=== PATIENT | male | born 1955 | race Two or more races ===

== ENCOUNTER 2017-09-06 23:33 | Inpatient (IN) | payer OTHER ==
[~2017-09-06] VITALS: Ht 172.7 cm; Wt 72.6 kg
[2017-09-06] MEDS ORDERED: GABAPENTIN600 MG (23:42)
[2017-09-06] MEDS ORDERED: ZOLPIDEM TARTRA10 MG (23:45)
[2017-09-06] MEDS ORDERED: ALPRAZOLAM2 MG (23:45)
[2017-09-06] MEDS ORDERED: HUMALOG MI100 UNIT/2 (23:46)
[2017-09-06] MEDS ORDERED: TRAMADOL HCL50 MG (23:48)
[2017-09-06] MEDS ORDERED: RAMIPRIL5 MG (23:48)
[2017-09-06] MEDS ORDERED: SERTRALINE HCL50 MG (23:48)
[2017-12-07] MEDS ORDERED: THIAMINE H100 MG/1 M IV (15:28)
[2017-12-07] MEDS ORDERED: AMLODIPINE BESYL5 MG PO (15:28)
[2017-12-07] MEDS ORDERED: PRE PROTEIN 2030 ML PO (15:28)
[2017-12-07] MEDS ORDERED: NeurRONTin 250MG/5ML PO (15:28)
[2017-12-07] MEDS ORDERED: LEVOTHYROXINE25 MCG PO (15:28)
[2017-12-07] MEDS ORDERED: LOSARTAN POTASS50 MG PO (15:28)
[2017-12-07] MEDS ORDERED: TOPROL XL100 M1 PO (15:28)
[2017-12-07] MEDS ORDERED: SERTRALINE HCL50 MG PO (15:28)
[2017-12-07] MEDS ORDERED: SUCRALFATE1 GM/10 ML PO (15:28)
[2017-12-07] MEDS ORDERED: PANTOPRAZOLE SO40 MG PO (15:28)
[2017-12-07] MEDS ORDERED: BACLOFEN10 MG PO (15:28)
[2017-12-07] MEDS ORDERED: FOLIC ACID1 MG PO (15:28)
[2017-12-07] MEDS ORDERED: HYDRALAZINE HCL25 MG PO (15:28)
[2017-12-07] MEDS ORDERED: Neurin-Sl Tablet Sl SL (15:28)
[2017-12-10] MEDS ORDERED: PLAVIX75 MG PO (10:08)
== END 2017-12-10 12:29 | disposition home or self-care (01) | DRG 4 ==
LOC: ER 23:33 → MEDJ 09-07 00:38 → ICU 09-07 00:38 → ICU-2 09-07 00:38 → ICU 09-10 08:36 → SURH 10-21 19:54 → MEDI 10-21 19:54 → SURH 10-21 19:54 → ICU 11-25 14:21
PROVIDERS: Otolaryngology
PROC: 5A1955Z Respiratory Ventilation, Greater than 96 Consecutive Hours (ICD-10-PCS; 2017-09-07)
PROC: 0BH17EZ Insertion of Endotracheal Airway into Trachea, Via Natural or Artificial Opening (ICD-10-PCS; 2017-09-07)
PROC: 4A033R1 Measurement of Arterial Saturation, Peripheral, Percutaneous Approach (ICD-10-PCS; 2017-09-07)
PROC: BW28ZZZ Computerized Tomography (CT Scan) of Head (ICD-10-PCS; 2017-09-08)
PROC: B246ZZZ Ultrasonography of Right and Left Heart (ICD-10-PCS; 2017-09-09)
PROC: 3E0F7GC Introduction of Other Therapeutic Substance into Respiratory Tract, Via Natural or Artificial Opening (ICD-10-PCS; 2017-09-15)
PROC: B020ZZZ Computerized Tomography (CT Scan) of Brain (ICD-10-PCS; 2017-09-18)
PROC: BR20ZZZ Computerized Tomography (CT Scan) of Cervical Spine (ICD-10-PCS; 2017-09-18)
PROC: 05H433Z Insertion of Infusion Device into Left Innominate Vein, Percutaneous Approach (ICD-10-PCS; 2017-09-18)
PROC: 4A00X4Z Measurement of Central Nervous Electrical Activity, External Approach (ICD-10-PCS; 2017-09-24)
PROC: 30233K1 Transfusion of Nonautologous Frozen Plasma into Peripheral Vein, Percutaneous Approach (ICD-10-PCS; 2017-09-27)
PROC: 0B110F4 Bypass Trachea to Cutaneous with Tracheostomy Device, Open Approach (ICD-10-PCS; principal; 2017-09-29 17:00)
PROC: B030ZZZ Magnetic Resonance Imaging (MRI) of Brain (ICD-10-PCS; 2017-10-02)
PROC: 0DH63UZ Insertion of Feeding Device into Stomach, Percutaneous Approach (ICD-10-PCS; 2017-10-07)
PROC: BB24ZZZ Computerized Tomography (CT Scan) of Bilateral Lungs (ICD-10-PCS; 2017-10-09)
PROC: 4A12X4Z Monitoring of Cardiac Electrical Activity, External Approach (ICD-10-PCS; 2017-10-21)
PROC: 0B21XFZ Change Tracheostomy Device in Trachea, External Approach (ICD-10-PCS; 2017-10-27)
PROC: 30233N1 Transfusion of Nonautologous Red Blood Cells into Peripheral Vein, Percutaneous Approach (ICD-10-PCS; 2017-10-29)
PROC: 0B21XFZ Change Tracheostomy Device in Trachea, External Approach (ICD-10-PCS; 2017-11-04)
PROC: B54PZZZ Ultrasonography of Bilateral Upper Extremity Veins (ICD-10-PCS; 2017-11-11)
PROC: BW40ZZZ Ultrasonography of Abdomen (ICD-10-PCS; 2017-11-12)
DX: E10.649 Type 1 diabetes mellitus with hypoglycemia without coma (principal); G93.41 Metabolic encephalopathy; J96.01 Acute respiratory failure with hypoxia; E87.0 Hyperosmolality and hypernatremia; B37.0 Candidal stomatitis; B37.49 Other urogenital candidiasis; J90 Pleural effusion, not elsewhere classified; E10.10 Type 1 diabetes mellitus with ketoacidosis without coma; I10 Essential (primary) hypertension; F32.89 Other specified depressive episodes; F14.10 Cocaine abuse, uncomplicated; F17.210 Nicotine dependence, cigarettes, uncomplicated; T42.4X4A Poisoning by benzodiazepines, undetermined, initial encounter; Y92.098 Other place in other non-institutional residence as the place of occurrence of the external cause; Z79.4 Long term (current) use of insulin; B96.5 Pseudomonas (aeruginosa) (mallei) (pseudomallei) as the cause of diseases classified elsewhere; B96.1 Klebsiella pneumoniae [K. pneumoniae] as the cause of diseases classified elsewhere; J04.10 Acute tracheitis without obstruction; R13.19 Other dysphagia; D72.1 Eosinophilia; D63.8 Anemia in other chronic diseases classified elsewhere; E10.42 Type 1 diabetes mellitus with diabetic polyneuropathy; Z78.1 Physical restraint status
CPT/HCPCS: 70551

== ENCOUNTER 2018-06-26 09:51 | Emergency (ER) | payer OTHER ==
[~2018-06-26] VITALS: Ht 167.6 cm; Wt 54.4 kg
[~2018-06-26 09:51] MED LIST: ALPRAZOLAM2 MG; AMLODIPINE BESYL5 MG PO; BACLOFEN10 MG PO; FLUCONAZOLE200 MG PO; FOLIC ACID1 MG PO; GABAPENTIN600 MG; HUMALOG MI100 UNIT/2; HYDRALAZINE HCL25 MG PO; LEVOTHYROXINE25 MCG PO; LOSARTAN POTASS50 MG PO; NeurRONTin 250MG/5ML PO; Neurin-Sl Tablet Sl SL; PANTOPRAZOLE SO40 MG PO; PLAVIX75 MG PO; PRE PROTEIN 2030 ML PO; RAMIPRIL5 MG; SERTRALINE HCL50 MG; SERTRALINE HCL50 MG PO; SUCRALFATE1 GM/10 ML PO; THIAMINE H100 MG/1 M IV; TOPROL XL100 M1 PO; TRAMADOL HCL50 MG; ZOLPIDEM TARTRA10 MG
== END 2018-06-26 20:32 | disposition home or self-care (01) ==
LOC: ER 09:51
DX: T17.810A Gastric contents in other parts of respiratory tract causing asphyxiation, initial encounter (principal); J69.0 Pneumonitis due to inhalation of food and vomit; Z93.0 Tracheostomy status; Z74.01 Bed confinement status; Z93.1 Gastrostomy status

== ENCOUNTER 2018-09-14 08:31 | Emergency (ER) | payer OTHER ==
[~2018-09-14] VITALS: Ht 167.6 cm; Wt 61.2 kg
[2018-09-14] MEDS ORDERED: LEVAQUIN500 MG PO (12:58)
== END 2018-09-14 14:34 | disposition home or self-care (01) ==
LOC: ER 08:31
DX: L02.212 Cutaneous abscess of back [any part, except buttock and flank] (principal); L72.8 Other follicular cysts of the skin and subcutaneous tissue; B37.89 Other sites of candidiasis; B95.2 Enterococcus as the cause of diseases classified elsewhere; B96.89 Other specified bacterial agents as the cause of diseases classified elsewhere

== ENCOUNTER 2019-02-14 05:49 | Inpatient (IN) | payer OTHER ==
[~2019-02-14] VITALS: Ht 167.6 cm; Wt 54.4 kg
[~2019-02-14 05:49] MED LIST changes: +LEVAQUIN500 MG PO
[2019-02-25] MEDS ORDERED: Septra Ds Tablet PO ×2 (17:52→18:09)
[2019-02-25] MEDS ORDERED: IPRATROPIU0.2 MG/1 M IH (17:52)
== END 2019-02-25 19:15 | disposition home or self-care (01) | DRG 177 ==
LOC: ER 05:49 → MEDI 15:34 → MEDJ 15:34
PROVIDERS: ADMIT Internal Medicine
PROC: 3E0F7GC Introduction of Other Therapeutic Substance into Respiratory Tract, Via Natural or Artificial Opening (ICD-10-PCS; 2019-02-14)
PROC: 30233N1 Transfusion of Nonautologous Red Blood Cells into Peripheral Vein, Percutaneous Approach (ICD-10-PCS; 2019-02-15)
PROC: 02HV33Z Insertion of Infusion Device into Superior Vena Cava, Percutaneous Approach (ICD-10-PCS; 2019-02-15)
PROC: 0DH63UZ Insertion of Feeding Device into Stomach, Percutaneous Approach (ICD-10-PCS; principal; 2019-02-16)
PROC: 3E0G76Z Introduction of Nutritional Substance into Upper GI, Via Natural or Artificial Opening (ICD-10-PCS; 2019-02-16)
PROC: 8E0ZXY6 Isolation (ICD-10-PCS; 2019-02-17)
PROC: BB24ZZZ Computerized Tomography (CT Scan) of Bilateral Lungs (ICD-10-PCS; 2019-02-17)
DX: J15.0 Pneumonia due to Klebsiella pneumoniae (principal); G93.41 Metabolic encephalopathy; E11.10 Type 2 diabetes mellitus with ketoacidosis without coma; N17.8 Other acute kidney failure; J90 Pleural effusion, not elsewhere classified; K94.23 Gastrostomy malfunction; N39.0 Urinary tract infection, site not specified; J96.10 Chronic respiratory failure, unspecified whether with hypoxia or hypercapnia; Z99.11 Dependence on respirator [ventilator] status; S70.211A Abrasion, right hip, initial encounter; Z93.0 Tracheostomy status; F19.10 Other psychoactive substance abuse, uncomplicated; D63.8 Anemia in other chronic diseases classified elsewhere; I25.10 Atherosclerotic heart disease of native coronary artery without angina pectoris; D72.828 Other elevated white blood cell count; I13.10 Hypertensive heart and chronic kidney disease without heart failure, with stage 1 through stage 4 chronic kidney disease, or unspecified chronic kidney disease; N18.9 Chronic kidney disease, unspecified; Z74.01 Bed confinement status; Z96.41 Presence of insulin pump (external) (internal); E86.0 Dehydration; E11.649 Type 2 diabetes mellitus with hypoglycemia without coma

== ENCOUNTER 2019-12-09 01:23 | Inpatient (IN) | payer OTHER ==
[~2019-12-09] VITALS: Ht 170.2 cm; Wt 54.4 kg
[~2019-12-09 01:23] MED LIST changes: +IPRATROPIU0.2 MG/1 M IH; +Septra Ds Tablet PO
--- NOTE | 2019-12-09 01:30 | NUR ---
PACIENTE LETARGICO, LLEGA EN AMBULANCIA PRESENTANDO DIFICULTAD RESPIRATORIA E HIPOTENSION CON TAQUICARDIA SINOSAL. PACIENTE CON TRANQUEOSTOMIA CON VENTURY MASK, TIENE GASTROSTOMIA Y BOMBA DE INSULINA. CUIDADORA REFIERE QUE EL PACIENTE SE ENCONTRABA "TITA" JOHNNY.
[2019-12-09] MEDS ORDERED: BACLOFEN10 MG PO (01:36)
--- NOTE | 2019-12-09 02:27 | NUR ---
PTE RECIBIDO EN AREA DE CRITICO,CON RESPIRACIONES ABDOMINALES Y RESPONDIENDO A ESTIMULOS DE DOLOR,PTE CON TRAQUEOSTOMIA,SE CONECTA A MONITOR CARDIACO Y OXIMETRIA,SE EXTRAEN MUESTRAS BAJO MEDIDAS ASEPTICAS,SE CANALIZA Y SE ADMINISTRA MEDICAMENTO MELINA ORDEN MEDICA,SE NOTIFICAN ABG Y TERAPIAS RESP A MR CELESTE,DR HARRY INDICA LUEGO DE TERAPIAS RESP REALIZAR SUCCION Y SE EJECUTA POR MR CELESTE,SE INSERTA MARK BAJO MEDIDAS,SE OBSERVA ORINA AMARILLA OSCURA SIN SEDIMENTACION,PTE CON PEG(TUBO DE ALIMENTACION PATENTE Y EN SITIO),BOMBA DE INSULINA EN LADO RT DE ABDOMEN FUNCIONANDO,SE NOTIFICA VENTURY MASK 50%,SE ADMINISTRA FLUID CHALLENGE DE 500ML 9.NSS POR ORDEN DE DR HARRY,PTE HIPOTENSO, SE TAHIRA BAJO OBSERVACION POR CAMBIOS.
--- NOTE | 2019-12-09 03:43 | NUR ---
PTE CONTINUA HIPOTENSO CON RESPIRACIONES ABDOMINALES CORTAS.SE INTENTA CONTACTAR A FAMILIAR(HIJA) EN 2 OCASIONES Y NO SE LOGRA,CUIDADORA DE HOME PRESENTE EN EL AREA.
--- NOTE | 2019-12-09 05:47 | NUR ---
LLEGA FAMILIAR AL AREA,EN VARIOS MINUTOS PTE COMIENZA A RESPONDER,SE VUELVE ALERTA Y COMUNICATIVO DENTRO DE PENA CONDICION,SE NOTIFICA A DR HARRY QUIEN ORIENTA A FAMILIAR(HIJA) SOBRE CONDICION Y TX MEDICO DEL PTE,SE TAHIRA BAJO OBSERVACION POR CAMBIOS.
--- NOTE | 2019-12-09 07:23 | NUR ---
7:00AM SE RECIBE PACIENTE EN UNIDAD ICU-2. CAMA #01,MASCULINO DE 64 ANOS,DESCANSANDO EN CAMA NIVEL MAS BAJO,BARANDAS ELEVADAS,FRENOS,RENO DE IDENTIFICACION,FRENOS COLOCADOS POR SEGURIDAD. CONECTADO A MONITOR CARDIACO,OXIMETRIA DE PULSO CONTINUA.ASISTIDO RESPIRATORIAMENTE POR VM AL 50%,SATURANDO 100%. PACIENTE CON TRAQUEOSTOMIA. EXTREMIDADES SUPERIORES LIBRES DE S/S EDEMA. VENOPUNCIONES EN BRAZO DERECHO PATENTES. RECIBIENDO 0.9%NSS 1,000 ML @ 150ML/HR; LEVOPHED 4MG/DSW 250ML @ 10ML/HR. ABDOMEN BALNDO,PERISTALSIS PRESENTE. TUBO PEG EN SITIO Y PATENTE. BOMBA DE INSULINA COLOCADA EN LADO DERECHO DE ABDOMEN EN FUNCION.SONDA URINARIA A GRAVEDAD CON PRESENCIA DE ORINA AMARILLO OSCURO. EXTREMIDADES INFERIORES LIBRES DE S/S EDEMA. SE TAHIRA COMODO EN CAMA BAJO OBSERVACION POR CAMBIOS.
--- NOTE | 2019-12-09 07:24 | NUR ---
CONSULTA PACIENTE CON MD INTERNISTA POR RLL BKP,HYPOTENSION,R/O SEPSIS.
--- NOTE | 2019-12-09 08:02 | NUR ---
DR.VALE BROWNINGA CONSULTA CON . CONSULTA PACIENTE CON DR.RIVERA LEAL POR RLL BKP,HYPOTENSION,R/O SEPSIS.
--- NOTE | 2019-12-09 09:00 | NUR ---
SE REALIZA FELIPE A PACIENTE CON HYBICLEANS. SE TAHIRA PACIENTE COMODO EN CAMA. PACIENTE TOLERA PROCEDIMIENTO LLEVADO A CABO.
--- NOTE | 2019-12-09 09:38 | NUR ---
DR.RIVERA LEAL CONSULTA PACIENTE CON INFECTOLOGO.
--- NOTE | 2019-12-09 10:31 | NUR ---
CONSULTA PACIENTE CON NEUMOLOGO .
[2019-12-20] MEDS ORDERED: HUMULIN N100 UNIT/2 SUBCUTANEO ×2 (11:34)
[2019-12-20] MEDS ORDERED: PANTOPRAZOLE SO40 MG PO (11:34)
[2019-12-20] MEDS ORDERED: LEVOTHYROXINE25 MCG PO (11:34)
[2019-12-20] MEDS ORDERED: CLOPIDOGREL BIS75 MG PO (11:34)
[2019-12-20] MEDS ORDERED: SERTRALINE HCL50 MG PO (11:34)
[2019-12-20] MEDS ORDERED: LUBRIDERM DAIL177 ML TOP (11:34)
[2019-12-20] MEDS ORDERED: BACLOFEN10 MG PO (11:34)
== END 2019-12-20 15:44 | DRG 177 ==
LOC: ER 01:23 → ICU-2 10:37 → ICU 16:48
PROVIDERS: ADMIT Internal Medicine
PROC: 4A033R1 Measurement of Arterial Saturation, Peripheral, Percutaneous Approach (ICD-10-PCS; principal; 2019-12-09)
PROC: 3E0F7GC Introduction of Other Therapeutic Substance into Respiratory Tract, Via Natural or Artificial Opening (ICD-10-PCS; 2019-12-09)
PROC: 3E0G76Z Introduction of Nutritional Substance into Upper GI, Via Natural or Artificial Opening (ICD-10-PCS; 2019-12-09)
PROC: 0T9B70Z Drainage of Bladder with Drainage Device, Via Natural or Artificial Opening (ICD-10-PCS; 2019-12-09)
PROC: 8E0ZXY6 Isolation (ICD-10-PCS; 2019-12-13)
DX: J69.0 Pneumonitis due to inhalation of food and vomit (principal); R65.20 Severe sepsis without septic shock; T17.598A Other foreign object in bronchus causing other injury, initial encounter; N17.8 Other acute kidney failure; E87.0 Hyperosmolality and hypernatremia; J90 Pleural effusion, not elsewhere classified; I12.9 Hypertensive chronic kidney disease with stage 1 through stage 4 chronic kidney disease, or unspecified chronic kidney disease; I25.10 Atherosclerotic heart disease of native coronary artery without angina pectoris; D63.1 Anemia in chronic kidney disease; R31.0 Gross hematuria; E86.0 Dehydration; E10.65 Type 1 diabetes mellitus with hyperglycemia; E10.22 Type 1 diabetes mellitus with diabetic chronic kidney disease; N18.2 Chronic kidney disease, stage 2 (mild); J15.6 Pneumonia due to other Gram-negative bacteria; B96.4 Proteus (mirabilis) (morganii) as the cause of diseases classified elsewhere; Z79.4 Long term (current) use of insulin; Z93.0 Tracheostomy status; Z93.1 Gastrostomy status; Z74.01 Bed confinement status

== ENCOUNTER 2020-10-14 23:50 | Inpatient (IN) | payer OTHER ==
[~2020-10-14] VITALS: Ht 167.6 cm; Wt 59.0 kg
[~2020-10-14 23:50] MED LIST changes: +CLOPIDOGREL BIS75 MG PO; +HUMULIN N100 UNIT/2 SUBCUTANEO; +LUBRIDERM DAIL177 ML TOP
--- NOTE | 2020-10-15 00:20 | NUR ---
SE RECIBE PTE EN AMBULANCIA EN COMPANIA DE FAMILIAR. FAMILIAR REFIERE QUE EL PACIENTE PRESENTA DIFICULTAD RESPIRATORIA DESDE JOHNNY, INDICA QUE EL PTE VIVE EN UN HOGAR (OLI BARONE) DONDE HAY UN BROTE DE COVID-19. PTE LLEGA CON TRAQUEOTOMIA Y GASTRO. PTE ES PRESENTADO A DR. RAYGOZA POR PERSONAL PARAMEDICO.
--- NOTE | 2020-10-15 01:04 | NUR ---
SE ORIENTA AL PACIENTE SOBRE EL TX. SE EXTRAEN MUESTRAS DE GUNNAR BAJO MEDIDAS ASEPTICAS ROTULADAS Y ENVIADAS AL LABORATORIO. PTE PREVIAMENTE CANALIZADO POR EL PERSONAL DE EMERGENCIAS MEDICAS. SE COLOCA CANULA NASAL A 3 LITROS PTE CON TRAQUEOSTOMIA, SUCCIONADO POR MIS. MERIDA QUIEN REALIZA ABGS
--- NOTE | 2020-10-15 07:14 | NUR ---
PACIENTE ALERTA Y ORIENTADO EN RAFFI REGINO ESFERAS, PRESENTA BUEN PATRON RESPIRATORIO Y KELLY DE DOLOR. CANALIZADO EN BRAZO RT PATENTE Y KELLY DE S/S DE FLEBITIS E INFILTRACION, RECIBIENDO 0.9% NSS A 150 ML/HR, SONDA URINARIA DRENANDO ORINA AMARILLO DANIEL. PENDIENTE EVALUACION DE MEDICINA INTERNA CON DR E GELLER POR BKP Y COVID 19+.
== END 2020-10-26 17:30 | disposition home or self-care (01) | DRG 981 ==
LOC: ER 23:50 → ICU 10-15 09:28 → ICU-2 10-15 09:28 → ICU 10-15 14:32
PROVIDERS: ADMIT Internal Medicine; ATTEND Internal Medicine
PROC: 8E0ZXY6 Isolation (ICD-10-PCS; 2020-10-15)
PROC: 4A033R1 Measurement of Arterial Saturation, Peripheral, Percutaneous Approach (ICD-10-PCS; 2020-10-15)
PROC: 3E0G76Z Introduction of Nutritional Substance into Upper GI, Via Natural or Artificial Opening (ICD-10-PCS; 2020-10-15)
PROC: B020ZZZ Computerized Tomography (CT Scan) of Brain (ICD-10-PCS; 2020-10-15)
PROC: 0DP60UZ Removal of Feeding Device from Stomach, Open Approach (ICD-10-PCS; principal; 2020-10-17)
PROC: 0DH63UZ Insertion of Feeding Device into Stomach, Percutaneous Approach (ICD-10-PCS; 2020-10-17)
PROC: 3E0G76Z Introduction of Nutritional Substance into Upper GI, Via Natural or Artificial Opening (ICD-10-PCS; 2020-10-17)
DX: U07.1 COVID-19 (principal); R65.21 Severe sepsis with septic shock; J15.5 Pneumonia due to Escherichia coli; J15.6 Pneumonia due to other Gram-negative bacteria; J15.8 Pneumonia due to other specified bacteria; N17.8 Other acute kidney failure; J91.8 Pleural effusion in other conditions classified elsewhere; K94.23 Gastrostomy malfunction; N39.0 Urinary tract infection, site not specified; R09.02 Hypoxemia; D63.8 Anemia in other chronic diseases classified elsewhere; I25.10 Atherosclerotic heart disease of native coronary artery without angina pectoris; E11.65 Type 2 diabetes mellitus with hyperglycemia; I11.9 Hypertensive heart disease without heart failure; B96.29 Other Escherichia coli [E. coli] as the cause of diseases classified elsewhere; Z74.01 Bed confinement status